=== PATIENT | male | born 1930 | race Caucasian/White ===

== ENCOUNTER 2017-04-27 12:16 | Day surgery (SDC) | payer MEDICARE, BC ==
[~2017-04-27 12:16] MED LIST: ACETAMINOPHEN325 MG PO; FLOMAX0.4 MG PO; LASIX20 MG PO; MULTI-DAY VITAM1 TAB PO; OMEPRAZOLE40 MG PO; PACERONE200 MG PO; PEPCID20 MG PO; PEPCID40 MG PO; PRILOSEC20 MG PO; PROBIOTIC1 EAC1 PO; SYNTHROID150 MCG PO
[2017-04-27] MEDS ORDERED: MEGACE40 MG PO (13:36)
[2017-04-27 13:38] LABS: HEMATOCRIT 48.5 % (42.0-54.0); HEMOGLOBIN 15.6 g/dL (13.5-17.5); MCH 30.2 pg (26.0-34.0); MCHC 32.2 g/dL (31.0-37.0); MCV 93.8 fL (80.0-100.0); MEAN PLATELET VOLUME 11.1 fL (7.4-10.4); RBC 5.17 10x6/uL (4.20-6.10); RDW 16.5 % (11.5-14.5); WBC 6.8 10x3/uL (4.8-10.8)
[2017-04-27 13:42] VITALS: BP 127/76; BMI 25.4
[2017-04-27 13:46] LABS: ANION GAP 14.9 mmol/L (8-16); CALCIUM 8.9 mg/dL (8.5-10.1); CARBON DIOXIDE 21.7 mmol/L (21.0-32.0); CREATININE - SERUM 1.8 mg/dL (0.6-1.3); POTASSIUM - SERUM 4.6 mmol/L (3.5-5.1)
--- NOTE | 2017-04-27 16:30 | NUR ---
1525- PT BACK TO ROOM IN LL POSITION. ANSWERING QUIESTIONS APPROPRIATELY. 1545- PT TOLERTATING FULL LIQUIDS. VSS. 1600- IV D/C'D, PT TOLERATED. CATHETER INTACT. 1615- DISCHARGE INSTRUCTIONS COMPLETED. PAPERWORK SIGNED. PT VERBALIZED UNDERSTANDING. 1625- PT DISCHARGED VIA WHEELCHAIR WITH AND FRIEND.
--- NOTE | 2017-05-01 09:47 | OP ---
PATIENT NAME: PINEDA PEÑA MEDICAL RECORD: [id number] :30 LOCATION:[facility] ADMISSION DATE: SURGEON: STEPHANIE HARRIS DO DATE OF OPERATION: 04/27/2017 PROCEDURE: EGD. INDICATIONS FOR PROCEDURE: Dysphagia and gastroesophageal reflux disease. SCOPE: Olympus video gastroscope. MEDICATIONS: Propofol 140 mg IV per anesthesia. ESTIMATED BLOOD LOSS: None. COMPLICATIONS: None. FINDINGS: Informed consent was given. The patient was made comfortable with the above medication. DESCRIPTION OF PROCEDURE: After reaching an adequate level of sedation by slow IV push, the patient was placed on his left side. The endoscope was then advanced under direct visualization through the mouth, to the second portion of the duodenum. The upper, middle, and lower thirds of the esophagus appeared normal without strictures, ulcers, erosions, rings, webs or other abnormalities. At the GE junction, there was very mild evidence of [place] classification A reflux-induced esophagitis with just a couple minor breaks in the Z line. The endoscope was advanced beyond the GE junction into the stomach and retroflexed to view the cardia, where a diminutive sliding hiatal hernia was present. The entire stomach revealed some atrophy consistent with atrophic gastritis. This appearance is consistent with the previously visualized stomach from Dr. Butler's endoscopy on 10/14/2015. No biopsies were taken on today's examination as there were no specific visualized abnormalities in this stomach as it was biopsied just over a year ago. The endoscope was advanced into the duodenum where the bulb to the second portion of the duodenum appeared normal. The endoscope was then withdrawn from the patient. The patient tolerated the procedure well and there were no complications. IMPRESSION: 1. [place] classification A reflux-induced esophagitis. 2. Diminutive sliding hiatal hernia. 3. Atrophic gastritis. PLAN AND RECOMMENDATIONS: 1. Discharge home when recovery parameters are met. 2. Continue current diet with reflux precautions. 3. Continue current medications including omeprazole 40 mg daily. 4. Modified barium swallow for oropharyngeal dysphagia. 5. As recommend previously, consider surgical referral for consideration of anti-reflux surgery. TRANSINT:[id number] Voice Confirmation ID: [id number] DOCUMENT ID: [id number] OPERATIVE REPORT [id number] PINEDA PEÑA STEPHANIE HARRIS DO at 0930 CC: [id number] DICTATION DATE: 04/27/17 1518 QUALITY REVIEWER: 04/27/17 1627 [facility] 04/27/17 [place] [id number] [place] [id number]
== END 2017-04-27 16:25 | disposition home or self-care (01) ==
LOC: D.OPS 12:16
PROVIDERS: Anesthesiology
DX: R13.10 Dysphagia, unspecified (principal); K21.0 Gastro-esophageal reflux disease with esophagitis; K44.9 Diaphragmatic hernia without obstruction or gangrene; K29.40 Chronic atrophic gastritis without bleeding; J44.9 Chronic obstructive pulmonary disease, unspecified; G47.30 Sleep apnea, unspecified; Z01.812 Encounter for preprocedural laboratory examination